=== PATIENT | female | born 1945 ===

== ENCOUNTER → 2016-09-29 | Outpatient (CLI) | payer MEDICARE, OTHER ==
[2016-09-29 14:40] LABS: ALBUMIN 3.8 gm/dL (3.5-5.0); ALK PHOS 71 IU/L (33-138); ALT 25 IU/L (12-78); ANION GAP 11.3 (10.0-19.0); AST 16 IU/L (10-40); BLOOD UREA NITROGEN 15 mg/dL (6-24); CALCIUM 8.8 mg/dL (8.5-10.5); CHLORIDE 108 mMol/L (96-110); CO2 27 mMol/L (22-32); CREATININE 0.8 mg/dL (0.5-1.1); PHOSPHORUS 3.3 mg/dL (2.5-4.9); POTASSIUM 4.3 mMol/L (3.7-5.1); SODIUM 142 mMol/L (135-145); TOTAL BILIRUBIN 0.3 mg/dL (0.0-1.5)
== END ==
LOC: LCNC 14:09
PROVIDERS: Internal Medicine Interventional Cardiology
DX: I10 Essential (primary) hypertension (principal)